=== PATIENT | female | born 1960 | race Caucasian/White ===

== ENCOUNTER 2022-05-10 12:49 | Outpatient (CLI) | payer BC | END 2022-05-10 12:50 | disposition home or self-care (01) | LOC: BICMAMMO 12:49 | PROVIDERS: ATTEND Family Medicine | DX: Z12.31 Encounter for screening mammogram for malignant neoplasm of breast (principal) | CPT/HCPCS: 77063; 77067 ==

== ENCOUNTER 2022-05-10 13:00 | Outpatient (CLI) | payer BC | END 2022-05-10 13:01 | disposition home or self-care (01) | LOC: BICULT 13:00 | PROVIDERS: ATTEND Family Medicine | DX: E04.1 Nontoxic single thyroid nodule (principal) | CPT/HCPCS: 76536 ==

== ENCOUNTER 2023-06-13 08:11 | Outpatient (CLI) | payer MEDICARE, OTHER | END 2023-06-13 08:12 | disposition home or self-care (01) | LOC: BICMAMMO 08:11 | PROVIDERS: ATTEND Family Medicine | DX: Z12.31 Encounter for screening mammogram for malignant neoplasm of breast (principal); N64.89 Other specified disorders of breast | CPT/HCPCS: 77063; 77067 ==

== ENCOUNTER 2023-06-19 08:01 | Outpatient (CLI) | payer MEDICARE, OTHER | END 2023-06-19 08:02 | disposition home or self-care (01) | LOC: BICMAMMO 08:01 | PROVIDERS: ATTEND Family Medicine | DX: N64.89 Other specified disorders of breast (principal) | CPT/HCPCS: 76642; 77065; G0279 ==